=== PATIENT | female | born 1960 | race Two or more races ===

== ENCOUNTER 2024-11-21 04:36 | Inpatient (IN) | payer MEDICARE, OTHER ==
[~2024-11-21] VITALS: Ht 162.6 cm; Wt 66.2 kg
[2024-11-21] VITALS (22 sets, daily range): BP systolic 128–155; BP diastolic 53–76; TEMP 98.4–98.6; O2SAT 95–96
[2024-11-21] MEDS: ACETAMINOPHEN ES 500 MG TABLET PO ONE (04:57)
[2024-11-21] MEDS ORDERED: ACETAMINOPHEN ES 500 MG TABLET ONE (04:57)
[2024-11-21] MEDS ORDERED: LABETALOL 20 MG/4 ML VIAL ONE (06:32)
[2024-11-21] MEDS: LABETALOL 20 MG/4 ML VIAL IV ONE (06:34)
[2024-11-21 07:36] LABS: BASOPHILS # (AUTO) 0.1 K/uL (0.0-0.2); BASOPHILS % (AUTO) 0.4 % (0.0-2.0); EOSINOPHILS # (AUTO) 0.2 K/uL (0.0-0.7); EOSINOPHILS % (AUTO) 1.8 % (0.0-6.0); HEMATOCRIT 42 % (33-45); HEMOGLOBIN 13.6 g/dL (11.5-14.8); LYMPHOCYTES # (AUTO) 3.4 K/uL (0.8-4.8); LYMPHOCYTES % (AUTO) 25.1 % (20.0-44.0); MEAN CORPUSCULAR HEMOGLOBIN 28 PG (26.0-33.0); MEAN CORPUSCULAR HGB CONC 33 g/dl (31.0-36.0); MEAN CORPUSCULAR VOLUME 86 fL (82-100); MONOCYTES # (AUTO) 0.8 K/uL (0.1-1.30); MONOCYTES % (AUTO) 5.5 % (2.0-12.0); NEUTROPHILS # (AUTO) 9.1 K/uL (1.8-8.9); NEUTROPHILS % (AUTO) 67.2 % (43.0-81.0); PLATELET COUNT (AUTO) 242 K/uL (150-450); RED BLOOD CELL COUNT(AUTO) 4.82 MIL/uL (4.0-5.2); RED CELL DISTRIBUTION WIDTH 13.8 % (11.5-15.0); WHITE BLOOD COUNT (AUTO) 13.6 K/uL (4.3-11.0)
[2024-11-21 07:51] LABS: CALCIUM, SERUM 9.3 mg/dL (8.5-10.1); CARBON DIOXIDE 24 mmol/L (21-32); CHLORIDE 104 mmol/L (98-107); CREATININE 0.8 mg/dL (0.6-1.3); GLUCOSE 200 mg/dL (74-106); POTASSIUM 3.9 mmol/L (3.5-5.1); SODIUM SERUM 138 mmol/L (136-145); UREA NITROGEN, BLOOD 18 mg/dL (7-18)
[2024-11-21] MEDS ORDERED: DEXTROSE 50%-WATER 50 ML DISP.SYRIN IV PRN (08:00)
[2024-11-21] MEDS ORDERED: IOHEXOL-350 100 ML VIAL IV ONE (08:24)
[2024-11-21] MEDS ORDERED: IV NS 0.9% 500 ML IV ONE (08:24)
[2024-11-21] MEDS ORDERED: CT SWABBABLE VALVE TRANS SET 1 EA INFUS.SET MC ONE (08:24)
[2024-11-21] MEDS ORDERED: METO-357 PO (08:30)
[2024-11-21] MEDS ORDERED: ZOLP5TAB8 PO (08:30)
[2024-11-21] MEDS ORDERED: DEXL30CA3 PO (08:30)
[2024-11-21] MEDS ORDERED: ATOR40TA PO (08:30)
[2024-11-21] MEDS ORDERED: JANUMET XR PO (08:30)
[2024-11-21] MEDS ORDERED: LISI1TAB55 PO (08:30)
[2024-11-21] MEDS ORDERED: NPH,100I SQ (08:30)
[2024-11-21 08:55] LABS: PROTHROMBIN TIME 10.6 SECS (9.2-11.1)
[2024-11-21] MEDS ORDERED: ACETAMINOPHEN 325 MG TABLET ONE (11:03)
[2024-11-21] MEDS: ACETAMINOPHEN 325 MG TABLET PO PRN (11:04)
[2024-11-21] MEDS: INSULIN REGULAR, HUMAN 100 UNIT/ML 3 ML VIAL SQ PRN (13:08)
[2024-11-21] MEDS: BLOOD SUGAR DIAGNOSTIC 1 EACH STRIP IN SCH (13:09)
[2024-11-21] MEDS: METOPROLOL SUCCINATE 50 MG TAB.SR.24H PO SCH (13:50)
[2024-11-21 15:49] LABS: THYROID STIMULATING HORMONE 2.51 uIU/mL (0.358-3.74)
[2024-11-21] MEDS: HYDROCODONE/APAP 5/325MG TABLET PO PRN (16:06)
[2024-11-21] MEDS: hydrALAZINE HCL IV 20 MG VIAL IV PRN (18:08)
[2024-11-21] MEDS: ATORVASTATIN 40 MG TABLET PO SCH (21:16)
[2024-11-22] VITALS (31 sets, daily range): BP systolic 102–176; BP diastolic 5–77; TEMP 97.9–99; O2SAT 95–99
[2024-11-22 04:35] LABS: BASOPHILS % (AUTO) 0.4 % (0.0-2.0); EOSINOPHILS # (AUTO) 0.3 K/uL (0.0-0.7); EOSINOPHILS % (AUTO) 2.9 % (0.0-6.0); HEMATOCRIT 41 % (33-45); HEMOGLOBIN 13.7 g/dL (11.5-14.8); LYMPHOCYTES # (AUTO) 3.1 K/uL (0.8-4.8); LYMPHOCYTES % (AUTO) 32.7 % (20.0-44.0); MEAN CORPUSCULAR HEMOGLOBIN 28 PG (26.0-33.0); MEAN CORPUSCULAR HGB CONC 34 g/dl (31.0-36.0); MEAN CORPUSCULAR VOLUME 84 fL (82-100); MONOCYTES # (AUTO) 0.8 K/uL (0.1-1.30); MONOCYTES % (AUTO) 7.9 % (2.0-12.0); NEUTROPHILS # (AUTO) 5.4 K/uL (1.8-8.9); NEUTROPHILS % (AUTO) 56.1 % (43.0-81.0); PLATELET COUNT (AUTO) 276 K/uL (150-450); RED BLOOD CELL COUNT(AUTO) 4.84 MIL/uL (4.0-5.2); RED CELL DISTRIBUTION WIDTH 13.9 % (11.5-15.0); WHITE BLOOD COUNT (AUTO) 9.6 K/uL (4.3-11.0)
[2024-11-22 05:02] LABS: CALCIUM, SERUM 9.2 mg/dL (8.5-10.1); CREATININE 0.7 mg/dL (0.6-1.3); MAGNESIUM 1.8 mg/dL (1.8-2.4); PHOSPHORUS 4.2 mg/dL (2.5-4.9); POTASSIUM 4.1 mmol/L (3.5-5.1)
[2024-11-22] MEDS: HYDROCHLOROTHIAZIDE 25 MG TABLET PO SCH (08:14)
[2024-11-22] MEDS: LISINOPRIL (20MG) 20 MG TABLET PO SCH (08:15)
[2024-11-22] MEDS: ONDANSETRON HCL/PF 4 MG/2 ML VIAL IVP PRN (08:32)
[2024-11-22 09:10] LABS: FOLIC ACID 13.4 ng/mL (>3.0)
[2024-11-22] MEDS ORDERED: IOHEXOL-350 100 ML VIAL IV ONE (10:57)
[2024-11-22] MEDS ORDERED: IV NS 0.9% 250 ML IV ONE (10:58)
[2024-11-22] MEDS ORDERED: CT SWABBABLE VALVE TRANS SET 1 EA INFUS.SET MC ONE (10:58)
== END 2024-11-22 15:15 | disposition home or self-care (01) | DRG 87 ==
LOC: ER 04:37 → ICU 09:57
PROVIDERS: ADMIT Nurse Practitioner Acute Care; ATTEND Internal Medicine
DX: S06.6X0A Traumatic subarachnoid hemorrhage without loss of consciousness, initial encounter (principal); W18.30XA Fall on same level, unspecified, initial encounter; E11.9 Type 2 diabetes mellitus without complications; I10 Essential (primary) hypertension; Z85.528 Personal history of other malignant neoplasm of kidney; Z90.5 Acquired absence of kidney; S00.11XA Contusion of right eyelid and periocular area, initial encounter; R40.2362 Coma scale, best motor response, obeys commands, at arrival to emergency department; R40.2142 Coma scale, eyes open, spontaneous, at arrival to emergency department; R40.2252 Coma scale, best verbal response, oriented, at arrival to emergency department; Y93.89 Activity, other specified; Y92.008 Other place in unspecified non-institutional (private) residence as the place of occurrence of the external cause; R51.9 Headache, unspecified; Z79.4 Long term (current) use of insulin
CPT/HCPCS: 36415; 70450-TC; 70496-TC; 70498-TC; 71045-TC; 80048-TC; 82607-TC; 82962-TC; 83735-TC; 83921; 84100-TC; 84425; 84443-TC; 84484-TC; 85025-TC; 85610-TC; A4223; G0378; J0360; J1815; J2405; J3490; J7040; J7050; Q9967